=== PATIENT | male | born 1955 | race Caucasian/White ===

== ENCOUNTER 2023-07-10 01:12 | Emergency (ER) | payer MEDICARE, OTHER, SELFPAY ==
[2023-07-10 01:20] VITALS: BP 122/66
--- NOTE | 2023-07-10 02:02 | ED.GENMED ---
History of Present Illness
General
Chief Complaint: Skin Surface Trauma
Source: patient
Exam Limitations: none
Time Seen by Provider: 07/10/23 01:37
Travel History
Have you had any contact with someone who has COVID-19?: No
Do you have any symptoms of coronavirus? Fever > 100 degrees, chills, cough, shortness of breath, sore throat, loss of taste or smell, muscle aches, or headache?: No
History of Present Illness
History of Present Illness:
This is a 67 year old male that come in with c/o laceration to his forehead. States that they were drinking and he had one to many. States that he was reaching to get something and he fell forward hitting his head. states that he was in the
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 Denies any fever, chills, chest pain, SOB, abd pain, nausea, vomiting, diarrhea, headache, dizziness, urinary burning.
Past History
Past History
ED Past Medical History: None; Negative Asthma, HTN, Hypercholesterolemia or NIDDM
ED Past Surgical History: Other (Hernia)
Social History
Tobacco: Non-smoker
Alcohol: Occasional
Personal:
Living: with family
Review of Systems
Review of Systems
All Other Systems: ROS reviewed and negative except as documented in HPI and ROS
Constitutional: Reports no symptoms; Denies fever or chills
EENT: Reports no symptoms
Respiratory: Reports no symptoms; Denies cough or trouble breathing
Cardiac: Reports no symptoms; Denies chest pain
ABD/GI: Reports no symptoms; Denies abdominal pain, nausea, vomiting or diarrhea
: Reports no symptoms; Denies dysuria, frequency or urgency
Musculoskeletal: Reports no symptoms
Skin: Reports other (Laceration right forehead)
Neurological: Reports no symptoms; Denies dizzy or headache
Psychiatric: Reports no symptoms
Phy Exam
General Physical Exam
General Presentation: well appearing and no apparent distress
General age: appears stated age
General Skin: warm and dry
General Habitus: normal
General Mental: alert
General Hydration: dry mucous membranes
ENT Exam
ENT Exam: TM's normal, pharynx normal and neck supple
Eye Exam
Eye Exam: EOMI
Cardiovascular Exam
Cardiovascular Exam: regular rate/rhythm
Musculoskeletal Exam
Musculoskeletal Exam: full ROM and other (Negative for any cervical or shoulder tenderness. Patient can flex elbows, Cross over, abduct. Move fingers and wrist without discomfort. )
Skin Exam
Skin Exam: normal color, warm/dry, no rash, no petechia and laceration (To the right forehead)
Psychiatric Exam
Psychiatric Exam: normal mood/affect
Course
Orders/Labs/Results
Orders:
Orders
07/10/23 01:45
CT Head W/o Iv Contrast Urgent
Comment:
Reason For Exam: fall, lac on head after drinking
07/10/23 02:04
Tetanus/Diphth/Acelpertussis [Adacel] 0.5 ml IM .ONCE ONE
Vital Signs
Initial and Last Documented VS:
Initial Vital Signs
Temp Pulse Resp BP Pulse Ox
98 F 82 18 122/66 98
07/10/23 01:20 07/10/23 01:20 07/10/23 01:20 07/10/23 01:20 07/10/23 01:20
Last Documented Vital Signs
Temp Pulse Resp BP Pulse Ox
98 F 82 18 122/66 98
07/10/23 01:20 07/10/23 01:20 07/10/23 01:20 07/10/23 01:20 07/10/23 01:20
Procedures
Laceration Closure
Right Upper Forehead:
Status of Wound: clean
Size of Wound in cm: 6
Description of Wound Edges: sharp
Preparation: cleaned with saline
Anesthesia: 1% Lidocaine with epi
Revision/Debridement: routine- no revision
Wound exploration: explored to base- no FB
Type of Closure: single layer closure
Skin Closure Material: other (6-0 ethilon)
Number of sutures: 8
MDM/Problems Addressed
Differential Diagnosis Includes:
laceration forehead.
MDM/Problems Addressed:
This is a 67 year old male that has been drinking that leaned forward and hit his head on the [employer] cabinet. Denies any LOC.
Laceration was sutured and will get CT of head.
Chronic conditions affecting care:
NA
Acute Exacerbation and/or Progression of Chronic Illness:
NA
*Radiology
Radiology exam reviewed: radiology read reviewed (CT head Night hawk-No evidence of acute intracranial abnormality. No evidence of hemorrhage or mass. Mild periventricular and subcortical regions of low attenuation likely representing chronic small
vessel ischemic disease. Mild volume loss. Ventricles are unremarkable. Left mastoid effusion, ) and other (CT cont- nonspecific no definite fracture or account for this findings. Consider correlation with examination. Bones are unremarkable. )
*Pulse Oximetry
Patient hypoxic: no
*EKG
Interpreted by ED Provider?: NA
Rate: EKG- N/A
*Delivery Analyst Interpretation
Rate: Delivery Analyst- N/A
*Critical Care Note
Total Time (30-74mins, 75-104mins- exclusive of procedures): Not Applicable
ED Attending Note
-
Portions of this chart may have been created with voice recognition software.� Occasional wrong word or��sound alike� substitutions may have occurred due to the inherent limitations of voice recognition software.
Discharge Plan
Departure
Patient Disposition: Home (Routine Discharge)
Date of Disposition: 07/10/23
Time of Disposition: 03:15
Patient with high blood pressure during this ER visit?: No
Condition: Good
Covid-19: Not Applicable
Discharge Problem:
Accidental fall, Forehead laceration
Instructions: Laceration Repair With Stitches (DC)
Prescriptions:
No Action
flaxseed oil 1,000 MG capsule
1,000 mg PO 5XW
aspirin [[place] Aspirin Children] 81 MG tablet,chewable
81 mg PO DAILY
losartan [Cozaar] 100 MG tablet
100 mg PO DAILY
cholecalciferol (vitamin D3) [Vitamin D3] 1,000 UNIT tablet
1,000 unit PO DAILY
Referrals:
Wong Salazar DO [Family Provider] - Follow up in 5-7 days
Activity Restrictions/Additional Instructions:
As discussed, your CT of the head is normal. You have a laceration repair to the forehead with 8 suture. Please follow up with the family doctor in 5-7 days for suture removal. Please keep this area dry for the next 24 hours and they you may gently
wash with warm soapy water. Please do not scrub. Tylenol for any headache pain. IF YOU HAVE ANY OTHER CONCERNS PLEASE RETURN TO THE EMERGENCY ROOM.
Interventions
Interventions:
*Risk Screen - Suicide Last Done: 07/10/23 01:20
*General Assessment Last Done: 07/10/23 01:40
*Neglect/Abuse Screening Last Done: 07/10/23 01:20
ED- Fall Risk Assessment Last Done: 07/10/23 01:40
*ED COVID-19 Vaccine History Last Done: 07/10/23 01:40
ED- Neurological Assessment Last Done: 07/10/23 01:40
ED-Skin Assessment Last Done: 07/10/23 01:40
[2023-07-10] MEDS: ADACEL 0.5 ML IM (03:04)
== END 2023-07-10 03:22 | disposition home or self-care (01) ==
LOC: EMR 01:12
PROVIDERS: EMERGENCY PHYSICIAN Emergency Medicine; FAMILY PHYSICIAN Internal Medicine
DX: S01.81XA Laceration without foreign body of other part of head, initial encounter (principal); W19.XXXA Unspecified fall, initial encounter; Z23 Encounter for immunization
CPT/HCPCS: 99284; 90471; 12014; 70450; 90715

== ENCOUNTER → 2025-02-27 11:02 | Outpatient (REF) | payer MEDICARE, OTHER, SELFPAY | LOC: HWRAD 11:02 | PROVIDERS: ATTENDING PHYSICIAN Internal Medicine | DX: M25.511 Pain in right shoulder (principal) | CPT/HCPCS: 73030 ==